=== PATIENT | female | born 1980 | race African-American/Black ===

== ENCOUNTER 2021-11-16 09:54 | Outpatient (CLI) | payer OTHER, SELFPAY ==
--- NOTE | ~2021-11-16 | XR_ITS ---
EXAMINATION: XR lumbar spine 6V w bending DATE: 11/16/2021 10:18 INDICATION: Right-sided low back pain. TECHNIQUE: 7 views of lumbar spine including flexion and extension views were obtained. COMPARISON: None. FINDINGS: There is 8 degrees levocurvature of thoracolumbar spine. There is spine is hypomobile with flexion and extension. Vertebral body heights and intervertebral disc heights are normal. The facet j oints are unremarkable. IMPRESSION: 1. Thoracolumbar levocurvature. Reviewed, dictated and finalized at location A.
[2021-11-16 10:22] LABS: Hematocrit 39.3 % (37.0-47.0); Hemoglobin 12.6 g/dL (12.0-15.0); Mean Corpuscular HGB Conc 32.1 g/dl (32-36); Mean Corpuscular Volume 84.3 fl (80-100); Mean Platelet Volume 10.8 fl (7.4-10.4); Platelet Count Result 335 k/mm3 (150-375); Red Blood Count 4.66 M/mm3 (4.2-5.4); Red Cell Distribution Width 15.2 % (11.5-14.5); White Blood Count 7.6 K/mm3 (4.5-10.0)
[2021-11-16 10:55] LABS: Alanine Aminotransferase 26 U/L (6-35); Albumin Level 4.6 g/dL (3.5-5.1); Alkaline Phosphatase 79 U/L (38-126); Anion Gap 8 mmol/L (8-16); Aspartate Amino Transferase 29 U/L (14-36); Bilirubin,Total 0.5 mg/dL (0.2-1.3); Blood Urea Nitrogen 11 mg/dL (7-17); Calcium 9.1 mg/dL (8.4-10.2); Carbon Dioxide 27 mmol/L (22-30); Chloride 106 mmol/L (98-107); Cholesterol 207 mg/dL (0-200); Estimated Glomerular Filt Rate > 60; Glucose 100 mg/dL (65-110); HDL Direct 46 mg/dL; Potassium 3.6 mmol/L (3.4-5.0); Sodium 141 mmol/L (137-145); Triglycerides 82 mg/dL (<150)
[2021-11-16 11:09] LABS: LDL Cholesterol Direct 126 mg/dL
[2021-11-16 12:01] LABS: Thyroid Stimulating Hormone 0.187 uIU/mL (0.465-4.680)
[2021-11-16 12:35] LABS: Folic Acid 10.8 ng/mL (2.76->20)
== END 2021-11-16 09:55 | disposition home or self-care (01) ==
LOC: ANHIMG 09:54
PROVIDERS: PCP Physician Assistant; Visit Provider Physician Assistant
DX: Z00.00 Encounter for general adult medical examination without abnormal findings (principal); M54.50 Low back pain, unspecified; M41.85 Other forms of scoliosis, thoracolumbar region
CPT/HCPCS: 36415; 72114; 80053; 80061; 82607; 82746; 84443; 85027

== ENCOUNTER 2023-10-04 14:10 | Outpatient (CLI) | payer OTHER, MEDICAID, SELFPAY ==
[2023-10-04 14:32] LABS: Hematocrit 37.3 % (37.0-47.0); Hemoglobin 11.9 g/dL (12.0-15.0); Mean Corpuscular HGB Conc 31.9 g/dl (32-36); Mean Corpuscular Hemoglobin 25.6 pg (26-34); Mean Corpuscular Volume 80.2 fl (80-100); Mean Platelet Volume 11.1 fl (7.4-10.4); Platelet Count Result 317 k/mm3 (150-375); Red Blood Count 4.65 M/mm3 (4.2-5.4); Red Cell Distribution Width 18.5 % (11.5-14.5); White Blood Count 10.5 K/mm3 (4.5-10.0)
[2023-10-04 15:26] LABS: Alanine Aminotransferase 23 U/L (6-35); Alkaline Phosphatase 60 U/L (38-126); Anion Gap 7 mmol/L (4-12); Aspartate Amino Transferase 30 U/L (14-36); Bilirubin,Total 0.2 mg/dL (0.2-1.3); Blood Urea Nitrogen 11 mg/dL (7-17); Calcium 9.2 mg/dL (8.4-10.2); Carbon Dioxide 30 mmol/L (22-30); Chloride 99 mmol/L (98-107); Cholesterol 161 mg/dL (0-200); Estimated Glomerular Filt Rate > 60; Glucose 95 mg/dL (65-110); HDL Direct 64 mg/dL; Potassium 3.5 mmol/L (3.4-5.0); Sodium 136 mmol/L (137-145); Triglycerides 100 mg/dL (<150)
[2023-10-04 15:37] LABS: LDL Cholesterol Direct 71 mg/dL
[2023-10-04 15:47] LABS: Free T4 Free Thyroxine 1.19 ng/mL (0.78-2.19)
[2023-10-04 15:59] LABS: Thyroid Stimulating Hormone 0.763 uIU/mL (0.465-4.680)
== END 2023-10-04 14:11 | disposition home or self-care (01) ==
LOC: ANHLAB 14:12
PROVIDERS: PCP Physician Assistant; Visit Provider Nurse Practitioner
DX: Z00.00 Encounter for general adult medical examination without abnormal findings (principal); E05.90 Thyrotoxicosis, unspecified without thyrotoxic crisis or storm
CPT/HCPCS: 36415; 80053; 80061; 84439; 84443; 85027

== ENCOUNTER 2023-12-31 08:31 | Outpatient (CLI) | payer OTHER, MEDICAID, SELFPAY ==
[2023-12-31 09:44] LABS: Thyroid Stimulating Hormone 0.513 uIU/mL (0.465-4.680)
[2023-12-31 10:20] LABS: Free T4 Free Thyroxine 1.28 ng/mL (0.78-2.19)
[2024-01-01 08:08] LABS: Triiodothryronine T3 Uptake 33 % (22-35)
[2024-01-02 08:14] LABS: Thyroid Peroxidase Antibodies <1 IU/mL (<9)
== END 2023-12-31 08:32 | disposition home or self-care (01) ==
LOC: ANHLAB 08:32
PROVIDERS: PCP Physician Assistant; Visit Provider Nurse Practitioner
DX: E05.90 Thyrotoxicosis, unspecified without thyrotoxic crisis or storm (principal)
CPT/HCPCS: 36415; 84439; 84443; 84479; 86376